=== PATIENT | female | born 1980 | race Two or more races ===

== ENCOUNTER → 2024-05-27 | Outpatient (CLI) | payer BC, SELFPAY ==
[2024-05-27 08:50] LABS: Free T3 3.6 pg/mL (2.3-4.2); Free T4 (Free Thyroxine) 1.02 ng/dL (0.89-1.76)
[2024-06-13 06:47] LABS: Estrogen, Total, Serum* 399 pg/mL; Progesterone,LC/MS* 12.8 ng/mL; T3, Reverse, LC/MS/MS* 14 ng/dL (8-25)
== END | disposition home or self-care (01) ==
PROVIDERS: PCP Family Medicine; Referring Provider Family Medicine; Visit Provider Family Medicine
DX: E03.9 Hypothyroidism, unspecified (principal); N95.1 Menopausal and female climacteric states
CPT/HCPCS: 36415; 82672; 84144; 84439; 84481; 84482